=== PATIENT | male | born 1950 | race Caucasian/White ===

== ENCOUNTER → 2018-04-02 | Outpatient (CLI) | payer MEDICARE, OTHER ==
--- NOTE | 2018-04-02 12:09 | RADIOLOGY IMAGING REPORT ---
FACILITY: [facility] - [place] PATIENT NAME: Elier Machado : 1950 MR: [id number] V: [id number] EXAM DATE: ORDERING PHYSICIAN: KATHRYN MARTINEZ TECHNOLOGIST: Location: [facility] [place] Patient: Elier Machado : 1950 Visit/Account:[id number] Date of Sevice: 04/02/2018 CHEST PA LAT Indication: Shortness of breath, Comparison: None. Findings: Lungs: Clear. Mediastinum/pulmonary vasculature: Heart size and pulmonary vasculature are normal. Bones/soft tissues: Normal. IMPRESSION: Clear lungs. Report Dictated By: Abel Naidu at 04/02/2018 12:05 PM Report E-Signed By: Abel Naidu at 04/02/2018 12:06 PM WSN:[id number]
== END ==
LOC: RAD 11:15
PROVIDERS: ATTEND Family Medicine
DX: R05 Cough (principal)
CPT/HCPCS: 71046